=== PATIENT | female | born 1995 | race Caucasian/White ===

== ENCOUNTER 2017-02-24 03:52 | Emergency (ER) | payer OTHER ==
[2017-02-24 05:47] LABS: BASO % 0.4 % (0-2); EOS % 0.2 % (0-7); HCT-HEMATOCRIT 45.4 % (34.0-49.0); HGB-HEMOGLOBIN 15.4 gm/dl (12.0-15.5); LYMPH % 25.2 % (20-45); LYMPH ABSOLUTE COUNT 1.4 tho/cmm (0.8-4.5); MCH (MEAN CORPUSCULAR HGB) 30.7 pg (28.0-32.0); MCHC MEAN CORPUSCULAR HGB CONC 33.9 % (32.0-36.0); MCV (MEAN CELL VOLUME) 90.6 fl (82.0-96.0); MEAN PLATELET VOLUME 9.9 cmc (9.4-12.4); MONO % 4.1 % (0-12); MONOCYTE ABSOLUTE COUNT 0.2 tho/cmm (0.0-1.2); NEUTROPHIL ABSOLUTE COUNT 3.8 tho/cmm (1.6-8.0); NEUTROPHIL-AUTOMATED 3.8 tho/cmm (1.6-8.0); NEUTROPHILS % 70.1 % (40-80); PLATELET COUNT 312 tho/cmm (150-450); RED BLOOD COUNT 5.01 mil/cmm (4.00-5.20); RED CELL DISTRIBUTION WIDTH 13.5 % (12.4-16.4); WHITE BLOOD COUNT 5.4 tho/cmm (4.0-10.0)
[2017-02-24 05:49] LABS: URINE BILIRUBIN NEGATIVE (NEG); URINE BLOOD NEGATIVE (NEG); URINE GLUCOSE (UA) NEGATIVE (NEG); URINE KETONE MODERATE (NEG); URINE LEUKOCYTE ESTERASE NEGATIVE (NEG); URINE NITRITE NEGATIVE (NEG); URINE PH 6.5 (5.0-8.0); URINE PROTEIN SMALL (NEG); URINE SPECIFIC GRAVITY 1.015 (1.003-1.030)
[2017-02-24 05:50] LABS: URINE APPEARANCE CLEAR; URINE COLOR DARK YELLOW
[2017-02-24 06:01] LABS: URINE BACTERIA 4+; URINE EPITHELIAL CELLS 0-4 /[HPF] (0-10); URINE RBC 0-1 /[HPF] (0-5); URINE WBC 0 /[HPF] (0-5)
[2017-02-24 06:04] LABS: ALB/GLOB RATIO 0.9 (0.8-2.0); ALBUMIN 3.9 g/dl (3.5-5.0); ALKALINE PHOSPHATASE 49 U/L (33-138); ALT/SGPT 13 U/L (12-78); ANION GAP 11 mmol/L (0-20); AST/SGOT 13 U/L (10-40); BILIRUBIN,TOTAL 0.6 mg/dl (0-1.5); BLOOD UREA NITROGEN 7 mg/dl (6-24); CARBON DIOXIDE-VENOUS 25 mmol/L (22-32); CHLORIDE 108 mmol/l (96-110); CREATININE 0.74 mg/dl (0.50-1.10); GLUCOSE 95 mg/dL (70-110); LIPASE 115 U/L (73-393); POTASSIUM 3.9 mmol/L (3.7-5.1); SODIUM 140 mmol/L (135-145); eGFR VALUE FOR BLACK >90 mL/Min
[2017-02-24 06:18] LABS: PREGNANCY-SERUM NEGATIVE (NEGATIVE)
[2017-02-24] MEDS ORDERED: BIRTH CONTROL (07:06)
[2017-02-24] MEDS ORDERED: DICYCLOMINE HCL20 M1 PO (07:49)
[2017-02-24] MEDS ORDERED: COMPAZINE10 MG PO (07:49)
== END 2017-02-24 08:00 ==
LOC: EDMED 03:52
PROVIDERS: Emergency Medicine
DX: R10.9 Unspecified abdominal pain (principal); R11.0 Nausea; Z98.890 Other specified postprocedural states
CPT/HCPCS: J1170; J1885; J2405; J7030; Q9967